=== PATIENT | female | born 1985 | race Caucasian/White ===

== ENCOUNTER → 2018-04-30 14:48 | Outpatient (CLI) | payer MEDICARE, MEDICAID, SELFPAY ==
--- NOTE | 2018-04-30 | DI.RAD.S_ITS ---
PROCEDURE: XR WRIST RT MIN 3V INDICATIONS: RIGHT WRIST PAIN TECHNIQUE: 3 views of the wrist were acquired. COMPARISON: [facility], , WRIST MINIMUM 3 VIEWS RIGHT, 11/21/2016, 15:08. FINDINGS: Bones: No fractures or dislocations. No suspicious bony lesions. Joint spaces appear maintained. Scaphoid view: Not requested Soft tissues: No suspicious soft tissue calcifications. IMPRESSION: Normal wrists, unchanged. Dictated by: Merrill Garcia M.D. on 04/30/2018 at 15:27 Approved by: Merrill Garcia M.D. on 04/30/2018 at 15:29
== END ==
PROVIDERS: Family Provider Family Medicine; PCP Family Medicine; Visit Provider Family Medicine
DX: M25.561 Pain in right knee (principal)
CPT/HCPCS: 73110

== ENCOUNTER → 2019-04-28 16:09 | Outpatient (CLI) | payer MEDICARE, MEDICAID, SELFPAY ==
--- NOTE | 2019-04-28 | DI.RAD.S_ITS ---
PROCEDURE: XR HAND RT MIN 3V INDICATIONS: Right hand pain TECHNIQUE: 3 views of the hand(s) acquired. COMPARISON: None. FINDINGS: Bones: No fractures or dislocations. Carpal bones are normally aligned. No suspicious bony lesions. Soft tissues: No suspicious soft tissue calcifications. IMPRESSION: No acute fracture or dislocation of the right hand identified. Consider followup radiographs in 7-10 days if there is continued clinical concern. Dictated by: Aamdor Carpenter M.D. on 04/28/2019 at 17:07 Approved by: Amador Carpenter M.D. on 04/28/2019 at 17:21
== END ==
PROVIDERS: PCP Family Medicine; Visit Provider Family Medicine
DX: M79.641 Pain in right hand (principal)
CPT/HCPCS: 73130

== ENCOUNTER 2019-07-02 07:16 | Day surgery (SDC) | payer MEDICAID, SELFPAY ==
[2019-06-30 08:37] VITALS: BMI 34.9
[2019-07-02] VITALS (7 sets, daily range): BP systolic 120–136; BP diastolic 68–87; PULSE 61–94; RESP 14–17; TEMP 36.2–36.7; O2SAT 98–100; BMI 32.3
--- NOTE | 2019-07-02 08:25 | SUR.PREOP ---
Dr Shafer here, pt attempted to give urine specimen x2 for HCG, unable to void. OK'd by Dr. Shafer to proceed.
--- NOTE | 2019-07-02 08:28 | PM.PREOP ---
Pre-operative Note Interval Note History & Physical reviewed/Exam performed by Physician: Yes Changes to H&P: No
--- NOTE | 2019-07-02 08:29 | P.HPOB_ITS ---
History of Present Illness History of Present Illness Reason for admission: other (sterilization and placement of IUD) Narrative: Rosetta Domínguez is a 33 year old female here for sterilization a placement of IUD Preoperative diagnosis: Wish for sterilization and placement of Kyleena IUD Planned procedure: Laparoscopic tubal ligation and placement of Kyleena IUD History of present illness: Patient is a 33-year-old developmentally delayed P0 who comes in with her mother who is her guardian for sterilization and placement of IUD. Patient denies sexual activity. The patient has been using Depo- Provera for the last 13 years. She would like to switch to either tubal ligation or an IUD. Both procedures were discussed with the patient. She does not seem able to consider doing a IUD in the office. Discussed the IUD as decreasing the risk of abnormal bleeding and lowering her risk for endometrial cancer given her slightly increased BMI. Discuss the tubal ligation is permanent control but we do not know what her periods will be like when the Depo-Provera for goes out of her system. Discussed the possibility of doing both a tubal ligation and an IUD under anesthesia so if she does not like the IUD could be removed and she would not need another anesthetic if she starts having problems with her menses with the tubal ligation alone wants her Depo- Provera is out of her system. The tubal ligation [facility] consent form was reviewed with the patient and signed greater than 30 days ago. Physical exam: HEENT exam within normal limits. Lungs are clear to auscultation and percussion. Heart is regular rate and rhythm no S3-S4 murmurs. Abdomen is nontender with no palpable organomegaly. Pelvic exam was not performed today. Normal extremities without edema. [facility] Medical History (Updated 07/02/19 @ 08:35 by Nory Shafer MD) Developmental delay, moderate (Acute) Hypothyroidism (Acute) Surgical History (Updated 06/30/19 @ 08:45 by Rachell Gregorio RN) History of tonsillectomy and adenoidectomy (Acute) Social History household members: family Meds Home Medications and Allergies Home Medications Medication Instructions Recorded Confirmed Type clonazepam 0.5 mg PO DAILY #0 08/10/12 07/02/19 History Toviaz 4 mg PO QDAY #0 01/20/13 07/02/19 History hydroxyzine HCl 25 mg tablet 25 mg PO BEDTIME tab 06/26/19 10/25/19 History oxcarbazepine 150 mg tablet 150 mg PO BID tab 03/03/19 07/02/19 History tolterodine 4 mg capsule,extended 4 mg PO DAILY 03/03/19 07/02/19 History release 24 hr venlafaxine 37.5 mg tablet 37.5 mg PO BID 03/03/19 07/02/19 History lamotrigine 50 mg PO DAILY 07/02/19 07/02/19 History Allergies Allergy/AdvReac Type Severity Reaction Status Date / Time nickel Allergy Mild Rash Verified 07/02/19 08:04 Review of Systems Review of Systems ROS Unobtainable: All systems reviewed & are unremarkable except as noted in HPI and below Exam Vital Signs (past 8 hours): - 07/02/19 08:09 Temperature 97.8 F Pulse Rate 94 H Respiratory Rate 14 Blood Pressure 128/86 Pulse Oximetry 98 Oxygen Delivery Method Room Air Assessment & Plan Assessment and plan (1) Sterilization: Current visit: Yes Status: Acute (2) H/O menorrhagia: Current visit: Yes Status: Acute Assessment & Plan narrative: Patient who is developmentally delayed whose guardian and patient are wishing permanent sterilization and placement of Kyleena to prevent and decrease chance of menorrhagia. Consent form was reviewed with the guardian and signed. Previously the consent form was gone over with the patient as well. Time Spent With Patient Time with patient: less than 15 minutes
[2019-07-02] MEDS: LACTATED RINGERS 1,000 ML 42 ML IV (08:30)
--- NOTE | 2019-07-02 09:30 | SUR.OPER ---
Lithotomy on padded OR bed, head on pillow, arms secured on padded arm boards at <90 degrees abduction. Legs secured in padded yellow fins stirrups.
[2019-07-02] MEDS: BUPIVACAINE 0.5% W/ EPI (PF) VIAL 30 ML INJ (09:37)
--- NOTE | 2019-07-02 09:50 | PM.OP.1 ---
Operative Date/Time/Diagnoses Date of procedure: 07/02/19 Time of procedure: 09:50 Pre-op diagnosis: Sterilization and history of menorrhagia Post-op diagnosis: same Procedure & Clinicians Procedure: Laparoscopic tubal ligation by fulguration and placement of Kyleena IUD Same procedure as scheduled: Yes Indications: Patient is developmentally delayed and patient and guardian wish sterilization. Patient has a history of menorrhagia for which she was using Depo-Provera so placement of Kyleena IUD to decrease chance of recurrence of menorrhagia. Surgeon: Nory Shafer Click Yes if Unassisted: Yes Anesthesia Type: General Operative Notes Findings: Normal tubes, ovaries, and uterus. No endometriosis. No internal hernias. No scar tissue. Normal liver edge and gallbladder dome. Normal bowel surface. Closure Type: primary Specimen(s): none sent Prosthetic devices, grafts, tissues, transplants, or devices: Kyleena IUD Estimated Blood Loss (mL): 5 Blood products transfused: none Procedure in detail: Patient was brought to the operating room where she underwent general anesthesia. [facility] and prepped and draped in usual sterile fashion. Pulsatile stockings were in place and functional. Warming was with blankets. A sponge stick was placed in the vagina. The area of the incisions were injected with half percent Marcaine with epinephrine. An incision was made in the umbilicus with a scalpel and the Verres needle placed in the abdomen. Confirmation of correct placement of the needle was performed by withdrawing on the syringe and then allowing fluid to fall freely through the needle. The abdomen was insufflated to 4 L of CO2. A 5 mm trocar was placed under direct visualization. A 5 mm trochar was placed in the right lower quadrant under direct visualization after incising the skin. There did not appear to be any damage with placement of the trocar. The right fallopian tube was grasped, cauterized, and cutting the fallopian tube at the junction with the uterus with the PK generator. Same procedure was performed on the left fallopian tube. Adequate hemostasis was noted. The CO2 was allowed to escape from the abdomen. The trochars were removed. Skin was closed with 4-0 monocryl. Next a speculum was placed in the vagina. A single-tooth tenaculum was placed on the anterior lip of the cervix. The uterus was sounded to approximately 7 cm and the Kyleena IUD placed to the fundus. The strings were cut to 4 cm. The patient went to recovery room in good condition. Complications: none Post-operative Condition: stable Disposition: same day surgery Plan for aftercare: Routine post laparoscopic tubal ligation
[2019-07-02] MEDS: HYDROCODONE/ACET 5/325 TABLET 1 TAB PO (10:51)
== END 2019-07-02 11:12 | disposition home or self-care (01) ==
PROVIDERS: Family Provider Family Medicine; PCP Family Medicine; Visit Provider Specialist
PROC: (CPT 58671; principal; 2019-07-02 08:45)
DX: Z30.2 Encounter for sterilization (principal); N92.0 Excessive and frequent menstruation with regular cycle; R62.50 Unspecified lack of expected normal physiological development in childhood; E03.9 Hypothyroidism, unspecified; Z30.430 Encounter for insertion of intrauterine contraceptive device
CPT/HCPCS: 58670; 58300; J1100; J1885; J2250; J2405; J2704; J2710; J3010; J7296

== ENCOUNTER → 2019-10-05 15:10 | Outpatient (CLI) | payer MEDICARE, MEDICAID, SELFPAY ==
--- NOTE | 2019-10-05 | DI.RAD.S_ITS ---
PROCEDURE: XR LUMBAR SPINE 2-3V INDICATIONS: RECENT FALL TECHNIQUE: 3 views of the lumbar spine were acquired. COMPARISON: None. FINDINGS: Bones: No fracture or focal osseous destruction. Straightening of the normal lordotic curvature. Mild diffuse narrowing of the lower thoracic spine disc spaces. Soft tissues: Overlying bowel gas pattern is normal. No suspicious soft tissue calcifications. Incidentally noted IUD. IMPRESSION: No fracture Mild degenerative changes as above Straightening of the normal lordotic curvature. Dictated by: Arie Thakur M.D. on 10/05/2019 at 16:59 Approved by: Arie Thakur M.D. on 10/05/2019 at 17:00
== END ==
PROVIDERS: Family Provider Family Medicine; PCP Family Medicine; Visit Provider Student in an Organized Health Care Education/Training Program
DX: T14.90XA Injury, unspecified, initial encounter (principal); M48.04 Spinal stenosis, thoracic region; W19.XXXA Unspecified fall, initial encounter
CPT/HCPCS: 72100

== ENCOUNTER → 2024-08-30 10:06 | Outpatient (CLI) | payer MEDICARE, MEDICAID, SELFPAY ==
--- NOTE | 2024-08-30 10:11 | DI.MG.S_ITS ---
BILATERAL DIGITAL DIAGNOSTIC MAMMOGRAM 3D/2D: 08/30/2024 CLINICAL: Baseline. Left breast lump. No prior exams were available for comparison. The breasts are heterogeneously dense, which may obscure small masses (category c / 51-75% glandular tissue). A BB marker was placed in the area of clinical palpable concern in the left breast, and no mammographic abnormality is identified. No significant masses, calcifications, or other findings are seen in either breast. IMPRESSION: INCOMPLETE: NEED ADDITIONAL IMAGING EVALUATION No mammographic abnormality in the area of clinical concern in the left breast. Recommend further evaluation with targeted breast ultrasound, which will immediately follow this exam. Based on the Tyrer Cuzick model (a risk assessment model) the patient's lifetime risk is 13.2% and her 10 year risk is 1.2%. According to the ACR, ACS, and NCCN guidelines, an annual breast MRI exam along with mammogram is recommended if the patient's lifetime risk is 20% or greater. This exam was interpreted at Station ID: [id number]. NOTE: For mammograms, a report in lay terms will be sent to the patient. Approximately 15% of breast malignancies will not be visualized mammographically. In the management of a palpable breast mass, a negative mammogram must not discourage biopsy of a clinically suspicious lesion. Electronically Signed By: Marie Rizzo M.D., Ph.D. eb/:08/30/2024 11:07:02 letter sent: Additional Imaging Needed ACR BI-RADS Category 0: Incomplete: Need Additional Imaging Evaluation
--- NOTE | 2024-08-30 10:12 | DI.US.S_ITS ---
LIMITED ULTRASOUND OF LEFT BREAST: 08/30/2024 CLINICAL: Palpable left breast lump. Comparison is made to exam dated: 08/30/2024 mammogram - [facility]. Real-time ultrasound of the left breast 2 o'clock region was performed. Hopson scale images of the real-time examination were reviewed. No sonographic abnormality is seen in the area of clinical concern in the left breast at 2 o'clock, 6 cm from the nipple. IMPRESSION: NEGATIVE No sonographic abnormality in the area of clinical concern. No mammographic or sonographic evidence of malignancy. Recommend routine screening mammogram starting at age 40. Clinical follow-up is also recommended, and further management of palpable abnormalities or other focal signs or symptoms should be based on the results of clinical evaluation. If palpable abnormality or other concerning symptom persists or progresses, further clinical evaluation should be considered. Findings and recommendations were conveyed to the patient during today's evaluation. This exam was interpreted at Station ID: [id number]. Electronically Signed By: Marie Rizzo M.D., Ph.D. eb/:08/30/2024 11:18:20 letter sent: Clinical Evaluation ACR BI-RADS Category 1: Negative
== END ==
PROVIDERS: Family Provider Family Medicine; PCP Family Medicine; Referring Provider Family Medicine; Visit Provider Family Medicine
DX: R92.2 Inconclusive mammogram (principal); N63.21 Unspecified lump in the left breast, upper outer quadrant; R92.333 Mammographic heterogeneous density, bilateral breasts
CPT/HCPCS: 76642; 77066; G0279